=== PATIENT | female | born 1975 | race Two or more races ===

== ENCOUNTER 2021-04-30 20:11 | Emergency (ER) | payer OTHER ==
[2021-04-30 20:19] VITALS: TEMP 98.5; BMI 56.7
[2021-04-30 21:28] LABS: BASO % 0.9 % (0-2.0); EOS % 10.4 % (0-4.5); HEMATOCRIT 26.6 % (32.4-45.2); LYMPH % 30.5 % (8-40); MCHC 30.1 g/dl (32.0-36.0); MEAN CELL VOLUME 55.3 fl (80-96); MEAN PLT VOLUME 8.4 fl (7.5-11.1); MONO % 7.9 % (3.8-10.2); NEUT % 50.3 % (42.8-82.8); PLATELET COUNT 260 10^3/uL (134-434); RBC 4.81 M/mm3 (3.60-5.2); RDW 17.5 % (11.6-15.6); WHITE BLOOD COUNT 8.1 K/mm3 (4.0-10.0)
[2021-04-30 21:36] LABS: MCH 16.6 pg (25.7-33.7)
[2021-04-30 21:47] LABS: CHLORIDE 108 mmol/L (98-107); SODIUM 138 mmol/L (136-145)
[2021-04-30 21:49] LABS: ALBUMIN 3.9 g/dl (3.4-5.0); ANION GAP 6 MMOL/L (8-16); CALCIUM 8.3 mg/dL (8.5-10.1); CO2 23 mmol/L (21-32)
[2021-04-30 21:50] LABS: BLOOD UREA NITROGEN 9.2 mg/dL (7-18); GLUCOSE,RANDOM 90 mg/dL (74-106)
[2021-04-30 21:52] LABS: SGOT/AST 17 U/L (15-37); SGPT/ALT 19 U/L (13-61)
[2021-04-30 21:53] LABS: CREATININE 0.6 mg/dL (0.55-1.3)
[2021-04-30 21:54] LABS: BILIRUBIN,TOTAL 0.8 mg/dL (0.2-1); TOT PROT 7.2 g/dl (6.4-8.2)
[2021-04-30 21:55] LABS: ALK PHOS 76 U/L (45-117)
[2021-05-01 01:02] VITALS: BP 101/64; PULSE 68
== END 2021-05-01 00:55 | disposition home or self-care (01) ==
LOC: JER 20:11
DX: R09.89 Other specified symptoms and signs involving the circulatory and respiratory systems (principal)
CPT/HCPCS: 36415; 70491-TC; 80053; 84484; 85025; 93005; 93010; 99285-25; Q9967